=== PATIENT | female | born 1970 | race Caucasian/White ===

== ENCOUNTER → 2021-03-07 | Outpatient (CLI) | payer OTHER ==
[~2021-03-07] MED LIST: ALBUTEROL INH INH; AMLODIPINE BESYL5 MG; GLUCOPHAGE500 MG; PRINIVIL40 MG; ZPAK PO
== END ==
LOC: MRI 03-06 14:41
PROVIDERS: ATTEND Physical Medicine & Rehabilitation Sports Medicine
DX: M47.26 Other spondylosis with radiculopathy, lumbar region (principal); M48.061 Spinal stenosis, lumbar region without neurogenic claudication